=== PATIENT | female | born 1940 | race Caucasian/White ===

== ENCOUNTER 2017-04-12 12:47 | Inpatient (IN) | payer OTHER ==
[~2017-04-12] VITALS: Ht 157.5 cm; Wt 62.6 kg
--- NOTE | ~2017-04-12 | EKG ---
[address] [address] ELECTROCARDIOGRAM REPORT Name: LORENZA CRISTOBAL Room #: 354-P ADM IN M.R.#: [id number] Admission: 04/12/17 Attend Phys: Laurence Rahman Discharge: Date of : 36 Report #: [id number] THIS REPORT FOR: //name// [facility] ED Test Date: 2017-04-12 Test Time: 13:24:30 Pat Name: LORENZA CRISTOBAL Department: Room: 354 Gender: F Director Dance: TERRY : 1940 Requested By: Celeste Mckee Order Number: [id number] MD: Mahesh Morin Measurements Intervals [place] Rate: 79 P: 80 NE: 171 QRS: -33 QRSD: 106 T: 67 QT: 373 QTc: 428 Interpretive Statements Sinus rhythm Left axis deviation Anteroseptal infarct, age indeterminate Compared to ECG 06/02/2008 14:25:33 Myocardial infarct finding now present T-wave abnormality no longer present Electronically Signed On 04-12-2017 20:28:48 CDT by Mahesh Morin [email or web address] <ELECTRONICALLY SIGNED> By: Mahesh Morin MD 04/12/172027 23 23 Mahesh Morin MD /EPI
--- NOTE | ~2017-04-12 | 2DMMODE ---
[facility] [address] [place] [address] 2 D/M-MODE ECHOCARDIOGRAM Name: LEVARLORENZA Room #: 354-P ADM IN M.R.#: [id number] Admission: 04/12/17 Attend Phys: Laurence Conteh Discharge: Date of : 36 Date of Service: 04/13/17 0957 Report #: [id number] THIS REPORT FOR: //name// APPROVED REPORT Study performed: 04/13/2017 08:25:15 EXAM: Comprehensive 2D, Doppler, and color-flow Echocardiogram Patient Location: Echo lab Room #: 354 Status: routine BSA: 1.63 HR: 67 bpm BP: 114/51 mmHg Rhythm: NSR Other Information Study Quality: Adequate Indications TIA Echo Enhancing Agent Indication: Rule out Shunt Agent(s) / Amount(s) Used: Agitated Saline 6 cc 2D Dimensions RVDd: 25.93 mm LVEF(%): 69.05 (>50%) IVSd: 8.78 (7-11mm) LVOT Diam: 18.86 (18-24mm) LVDd: 40.48 mm PWd: 7.65 (7-11mm) LVDs: 24.98 (25-40mm) Aortic Root: 30.24 mm Roque's LVEF: 69.05 % Volumes Left Atrial Volume (Systole) Single Plane 4CH: 19.13 mL Single Plane 2CH: 30.55 mL LA ESV Index: 16.00 mL/m2 Aortic Valve AoV Peak Frankie.: 1.75 m/s AO Peak Gr.: 12.29 mmHg LVOT Max P.72 mmHg LVOT Max V: 1.39 m/s MACHO Vmax: 2.21 cm2 [facility] [address] [place] [address] 2 D/M-MODE ECHOCARDIOGRAM Name: HAROLDO CRISTOBALINE Room #: 354-[facility] IN [facility].#: [id number] Admission: 04/12/17 Attend Phys: Laurence Conteh Discharge: Date of : 36 Date of Service: 04/13/17 0957 Report #: [id number] Mitral Valve E/A Ratio: 0.9 MV Decel. Time: 238.87 ms MV E Max Frankie.: 0.98 m/s MV A Frankie.: 1.09 m/s MV PHT: 69.27 ms IVRT: 73.82 ms Pulmonary Valve PV Peak Frankie.: 0.90 m/s PV Peak Gr.: 3.22 mmHg Pulmonary Vein P Vein S: 0.74 m/s P Vein A: 0.34 m/s P Vein D: 0.61 m/s P Vein A Dur.: 124.6 msec P Vein S/D Ratio: 1.21 Tricuspid Valve TR Peak Frankie.: 2.27 m/s RAP Estimate: 5.00 mmHg TR Peak Gr.: 20.68 mmHg PA Pressure: 26.00 mmHg Left Ventricle The left ventricle is normal size. There is normal LV segmental wall motion. There is normal left ventricular wall thickness. Left ventricular systolic function is normal. LVEF is 60-65%. Mild diastolic dysfunction is present (impaired relaxation pattern). Right Ventricle The right ventricle is normal size. The right ventricular systolic function is normal. Atria The left atrium size is normal. Injection of bubbles documented no interatrial shunt. The right atrium size is normal. Aortic Valve Aortic valve is mildly calcified. No aortic regurgitation is present. There is no aortic valvular stenosis. Mitral Valve Mitral valveis mildly calcified. Trace mitral regurgitation. No evidence of mitral valve stenosis. Tricuspid Valve [facility] [address] [place] [address] 2 D/M-MODE ECHOCARDIOGRAM Name: LORENZA CRISTOBAL Room #: 354-P [facility] IN M.R.#: [id number] Admission: 04/12/17 Attend Phys: Laurence Conteh Discharge: Date of : 36 Date of Service: 04/13/17 0957 Report #: [id number] The tricuspid valve is normal in structure. Trace tricuspid regurgitation. Estimated PAP is 25-30mmHg. Pulmonic Valve Pulmonic valve is not well visualized. Trace pulmonic regurgitation. Great Vessels The aortic root is normal in size. Ascending aorta is not well visualized. IVC is normal in size and collapses >50% with inspiration. Pericardium There is no pericardial effusion. <Conclusion> The left ventricle is normal size. LVEF is 60-65%. Aortic valve is mildly calcified. No aortic regurgitation is present. There is no aortic valvular stenosis. Mitral valveis mildly calcified. Trace mitral regurgitation. The tricuspid valve is normal in structure. Trace tricuspid regurgitation. Estimated PAP is 25-30mmHg. Pulmonic valve is not well visualized. Trace pulmonic regurgitation. Injection of bubbles documented no interatrial shunt. <ELECTRONICALLY SIGNED> By: Charanjit Stanley MD 04/13/1757 6 6 Charanjit Stanley MD /INF
[2017-04-12 12:47] VITALS: BP 99/84
[~2017-04-12 12:47] MED LIST: AVAPRO300 MG PO; HYDROCHLOROTHIA25 M2 PO; IBUPROFEN 400400 M1 PO; JANUVIA100 MG PO; PRAVACHOL40 MG PO; SUDAFED; TESSALON PERLE100 MG PO
[2017-04-12 13:04] LABS: ABSOLUTE NEUTROPHILS 5.3 thou/uL (1.4-8.2); BASOPHILS 0.9 % (0.0-2.0); HEMATOCRIT 37.7 % (37.0-47.0); HEMOGLOBIN 12.6 gm/dL (12.0-15.0); LYMPHOCYTES 23.7 % (24.0-44.0); MCH 28.7 pg (26.0-34.0); MCHC 33.5 g/dL (28.0-37.0); MCV 85.6 fL (80.0-100.0); MONOCYTES 6.7 % (1.0-8.0); POLYS 65.7 % (36.0-66.0); RBC 4.41 mil/uL (4.20-5.00); RDW 13.3 % (10.5-14.5)
[2017-04-12 13:05] LABS: MANUAL DIFF NO
[2017-04-12 13:07] LABS: PLATELET COUNT 182 thou/uL (150-400)
[2017-04-12 13:12] LABS: POC CA IONIZED 4.9 mg/dL (4.5-5.3); POC CREATININE 1.3 mg/dL (0.6-1.3); POC HEMOGLOBIN 12.9 g/dL (12.0-15.0); POC POTASSIUM 4.3 mmol/L (3.5-5.1)
[2017-04-12 13:16] LABS: APTT 27.7 Seconds (24.5-32.8); INR 1.1
[2017-04-12 13:20] LABS: PROTIME 11.7 Seconds (9.3-11.4)
[2017-04-12 14:04] VITALS: BP 151/44
[2017-04-12 14:10] VITALS: BP 151/44
[2017-04-12 14:15] VITALS: BP 186/63
[2017-04-12 14:28] LABS: CHOLESTEROL 144 mg/dL (<200); HDL CHOLESTEROL 48 mg/dL (>40); LDL CHOLESTEROL 67 mg/dL (<100); TRIGLYCERIDE 147 mg/dL (<150); VLDL 29 mg/dL (<40)
[2017-04-12] MEDS ORDERED: GLUCOTROL5 MG PO (15:29)
[2017-04-12] MEDS ORDERED: AVAPRO300 MG PO (15:30)
[2017-04-12] MEDS ORDERED: SPIRONOLACTONE25 M1 PO (19:28)
[2017-04-12 19:55] VITALS: BP 137/56
[2017-04-13] VITALS: BP 127/53
[2017-04-13 04:10] VITALS: BP 126/67
[2017-04-13 07:40] VITALS: BP 114/51
[2017-04-13] MEDS ORDERED: ASPIRIN325 PO (10:21)
[2017-04-13 10:34] VITALS: BP 114/51
[2017-04-13 14:01] VITALS: BP 114/51
== END 2017-04-13 12:20 | disposition home or self-care (01) | DRG 69 ==
LOC: ER 12:47 → 3W 14:01 → EROBS 14:01 → 3W 14:13 → ENTRNSPT 04-13 12:19 → 3W 04-13 12:20
PROVIDERS: Emergency Medicine; Hospitalist
DX: G45.9 Transient cerebral ischemic attack, unspecified (principal); E11.9 Type 2 diabetes mellitus without complications; I10 Essential (primary) hypertension; E78.5 Hyperlipidemia, unspecified; Z98.42 Cataract extraction status, left eye; Z98.41 Cataract extraction status, right eye; Z90.711 Acquired absence of uterus with remaining cervical stump; Z90.49 Acquired absence of other specified parts of digestive tract; Z88.1 Allergy status to other antibiotic agents; Z88.0 Allergy status to penicillin; Z79.82 Long term (current) use of aspirin; Z79.899 Other long term (current) drug therapy; Z87.891 Personal history of nicotine dependence
CPT/HCPCS: 10779

== ENCOUNTER → 2017-12-22 | Outpatient (CLI) | payer OTHER ==
[~2017-12-22] VITALS: Ht 157.5 cm; Wt 63.5 kg
[~2017-12-22] MED LIST changes: +ASPIRIN325 PO; +GLUCOTROL5 MG PO; +SPIRONOLACTONE25 M1 PO; +SUDAFED 12 HR120 MG PO
--- NOTE | ~2017-12-22 | P ---
[facility] [place] [address] PROCEDURE REPORT Name: LORENZA CRISTOBAL [id number] Admission: 12/22/17 Attend Phys: Kevin Braden Discharge: Date of : 36 Report #: [id number] THIS REPORT FOR: //name// CC: Kevin Trejo MD DATE OF SERVICE: 12/22/2017 PROCEDURE PERFORMED: Colonoscopy with biopsies. HISTORY OF PRESENT ILLNESS: The patient is a 77-year-old female with a history of colon polyps, last colonoscopy in 2014. She has had a previous right hemicolectomy for polyps that could not be removed endoscopically. This was performed in 12/2012. She also has a family history of colon cancer in a brother and her father. She denies any symptoms at this time. DESCRIPTION OF PROCEDURE: The risks and benefits of the procedure were explained to the patient, those risks including but not limited to bleeding, perforation, the risk of sedation. She understood these risks and gave informed consent. Sedation was given using propofol per Anesthesia. Next, a digital rectal exam was initially performed, which was normal. Next, using a standard Olympus colonoscope, the scope was placed in the patient's anus and advanced under direct vision into the right colon in which the surgical anastomosis was noted. This was well healed and widely patent. The remaining transverse colon was normal. Multiple diverticula were noted throughout the descending and sigmoid colon. Also, in the sigmoid colon were two 3-4 mm sessile polyps, both removed with cold forceps. The rectal mucosa was normal. On retroflexion, no abnormalities were noted. The scope was then withdrawn and the procedure terminated. The patient tolerated the procedure well. IMPRESSION: 1. Left-sided diverticulosis. 2. Two small colonic polyps. 3. Surgical anastomosis noted in the right colon. 4. Otherwise, normal colonoscopy. RECOMMENDATIONS: 1. Await biopsy results. 2. Consider repeat colonoscopy in [address] [address] PROCEDURE REPORT Name: LEVARLORENZA [facility] [id number] Admission: 12/22/17 Attend Phys: Kevin Braden Discharge: Date of : 36 Report #: [id number] Thank you for allowing me to participate in her care. <ELECTRONICALLY SIGNED> By: Kevin Sarabia MD 12/29/17 1020 0852 0906 Kevin Sarabia MD /nt
--- NOTE | ~2017-12-22 | PATH ---
[facility] [address] [place] [address] PATHOLOGY RPT PROCEDURE Name: HUI CRISTOBAL Room #: REG [facility] Jey.#: [id number] Admission: 12/22/17 Date of : 36 Discharge: Report #: [id number] Path Case #: [id number] [facility] Accession Number: [id number] . 01 Material submitted: . POLYP AT SIGMOID COLON X2 . 01 Clinical history: . History polyps Colon polyps, diverticulosis . 02 Diagnosis: Polyp x 2, sigmoid colon, endoscopic biopsy: - Hyperplastic polyp x 1; negative for dysplasia. - Remainder fragments showing hyperplastic changes without dysplasia. (IUV:pit; 12/25/2017) QTP/12/25/2017 . 02 Electronically signed: . Chelle Liang MD, Pathologist NPI- [id number] . 01 Gross description: . The specimen is received in formalin, labeled "Hui Cristobal, colon polyp x2" and consists of 4 fragments of pink-salcedo soft tissue measuring between 0.3 x 0.2 x 0.1 cm and 0.5 x 0.2 x 0.1 cm. They are entirely submitted in A1. (SDY; 12/22/2017) SYU/SYU . 02 Pathologist provided ICD-10: K63.5 . 02 CPT . 207384 Performed at: [address], [place], [place] [id number] MD Eliel Navarro MD Phone: [phone] Performed at: [address] [id number] MD Chelle Liang MD Phone: [phone]
== END | disposition home or self-care (01) ==
LOC: GI 06:58
DX: Z12.11 Encounter for screening for malignant neoplasm of colon (principal); K63.5 Polyp of colon; K57.30 Diverticulosis of large intestine without perforation or abscess without bleeding; I10 Essential (primary) hypertension; E78.5 Hyperlipidemia, unspecified; E11.9 Type 2 diabetes mellitus without complications; Z79.899 Other long term (current) drug therapy; Z86.010 Personal history of colon polyps; Z87.891 Personal history of nicotine dependence; Z98.890 Other specified postprocedural states; Z80.0 Family history of malignant neoplasm of digestive organs; Z90.49 Acquired absence of other specified parts of digestive tract; Z98.0 Intestinal bypass and anastomosis status; Z90.710 Acquired absence of both cervix and uterus; Z98.41 Cataract extraction status, right eye; Z98.42 Cataract extraction status, left eye; Z86.73 Personal history of transient ischemic attack (TIA), and cerebral infarction without residual deficits
CPT/HCPCS: 62110; 62900

== ENCOUNTER 2017-12-30 15:50 | Inpatient (IN) | payer OTHER ==
[~2017-12-30] VITALS: Ht 157.5 cm; Wt 63.5 kg
--- NOTE | ~2017-12-30 | EKG ---
[place] [address] [facility] [place] [address] ELECTROCARDIOGRAM REPORT Name: LORENZA CRISTOBAL Room #: 427-P [facility] IN M.R.#: [id number] Admission: 12/30/17 Attend Phys: Bobby Mortensen MD Discharge: 12/31/17 Date of : 36 Report #: [id number] THIS REPORT FOR: //name// [facility] ED Test Date: 2017-12-30 Test Time: 15:54:48 Pat Name: LORENZA CRISTOBAL Department: Room: Gender: F Crop Supervisor: : 1940 Requested By: Celeste Mckee Order Number: [id number] MD: Sumeet Moser Measurements Intervals [place] Rate: 83 P: 78 ND: 157 QRS: -31 QRSD: 89 T: 65 QT: 355 QTc: 418 Interpretive Statements Sinus rhythm Left axis deviation Poor R wave progression Compared to ECG 04/12/2017 13:24:30 No significant change was found Electronically Signed On 01-01-2018 16:52:39 CDT by Sumeet Moser [email or web address] <ELECTRONICALLY SIGNED> By: Sumeet Moser MD, [facility] 01/01/18 [phone] Sumeet Moser MD, [facility] /EPI
[2017-12-30 16:00] VITALS: BP 136/78
[2017-12-30 16:25] LABS: ABSOLUTE NEUTROPHILS 7.2 thou/uL (1.4-8.2); BASOPHILS 0.7 % (0.0-2.0); EOSINOPHILS 2.7 % (0.0-3.0); HEMATOCRIT 36.8 % (37.0-47.0); HEMOGLOBIN 12.6 gm/dL (12.0-15.0); LYMPHOCYTES 21.8 % (24.0-44.0); MCH 28.5 pg (26.0-34.0); MCHC 34.2 g/dL (28.0-37.0); MCV 83.4 fL (80.0-100.0); MONOCYTES 7.9 % (1.0-8.0); PLATELET COUNT 197 thou/uL (150-400); POLYS 66.9 % (36.0-66.0); RBC 4.41 mil/uL (4.20-5.00); RDW 13.9 % (10.5-14.5); WBC 10.8 thou/uL (4.0-11.0)
[2017-12-30 16:34] LABS: ANION GAP 8 mmol/L (7-16); BUN 26 mg/dL (7-18); CALCIUM 9.8 mg/dL (8.5-10.1); CHLORIDE 103 mmol/L (98-107); CO2 23 mmol/L (21-32); CREATININE 1.5 mg/dL (0.6-1.0); GLUCOSE 145 mg/dL (74-106); POTASSIUM 4.9 mmol/L (3.5-5.1); SODIUM 134 mmol/L (136-145)
[2017-12-30 16:37] LABS: APTT 27.4 Seconds (24.5-32.8); INR 1.1; PROTIME 11.4 Seconds (9.3-11.4)
[2017-12-30 16:43] LABS: TROPONIN-I <0.06 ng/mL (<0.06)
[2017-12-30 17:41] VITALS: BP 136/78
[2017-12-30 18:00] VITALS: BP 165/61
[2017-12-30 18:58] VITALS: BP 165/61
[2017-12-30 19:14] VITALS: BP 139/74
[2017-12-31 00:35] VITALS: BP 112/64
[2017-12-31 05:04] VITALS: BP 103/55
[2017-12-31 09:30] VITALS: BP 102/48
[2017-12-31 12:41] VITALS: BP 102/48
== END 2017-12-31 12:53 | disposition home or self-care (01) | DRG 313 ==
LOC: ER 15:50 → EROBS 17:22 → 4E 18:30
PROVIDERS: Emergency Medicine
DX: R07.89 Other chest pain (principal); E11.9 Type 2 diabetes mellitus without complications; I10 Essential (primary) hypertension; E78.5 Hyperlipidemia, unspecified; Z90.49 Acquired absence of other specified parts of digestive tract; Z90.711 Acquired absence of uterus with remaining cervical stump; Z90.710 Acquired absence of both cervix and uterus; Z98.42 Cataract extraction status, left eye; Z98.41 Cataract extraction status, right eye; Z88.1 Allergy status to other antibiotic agents; Z88.0 Allergy status to penicillin; Z88.8 Allergy status to other drugs, medicaments and biological substances; Z87.891 Personal history of nicotine dependence; Z79.899 Other long term (current) drug therapy; Z79.82 Long term (current) use of aspirin
CPT/HCPCS: 10183

== ENCOUNTER 2020-03-04 02:40 | Emergency (ER) | payer OTHER ==
[~2020-03-04] VITALS: Ht 157.5 cm; Wt 63.5 kg
[2020-03-04 03:57] LABS: ABSOLUTE NEUTROPHILS 5.3 thou/uL (1.4-8.2); BASOPHILS 0.7 % (0.0-2.0); EOSINOPHILS 3.8 % (0.0-3.0); HEMATOCRIT 36.6 % (37.0-47.0); HEMOGLOBIN 12.2 gm/dL (12.0-15.0); LYMPHOCYTES 24.2 % (24.0-44.0); MCH 27.8 pg (26.0-34.0); MCHC 33.4 g/dL (28.0-37.0); MCV 83.2 fL (80.0-100.0); MONOCYTES 8.7 % (1.0-8.0); PLATELET COUNT 192 thou/uL (150-400); POLYS 62.6 % (36.0-66.0); RBC 4.39 mil/uL (4.20-5.00); WBC 8.5 thou/uL (4.0-11.0)
[2020-03-04 04:08] LABS: ANION GAP 9 mmol/L (7-16); BUN 20 mg/dL (7-18); CALCIUM 9.3 mg/dL (8.5-10.1); CHLORIDE 103 mmol/L (98-107); CO2 28 mmol/L (21-32); CREATININE 1.1 mg/dL (0.6-1.0); GLUCOSE 168 mg/dL (74-106); SODIUM 140 mmol/L (136-145)
[2020-03-04 04:17] LABS: TROPONIN-I <0.06 ng/mL (<0.06)
[2020-03-04 06:21] VITALS: BP 159/62
--- NOTE | 2020-03-04 07:59 | EKG ---
[facility] [place] [address] ELECTROCARDIOGRAM REPORT Name: LORENZA CRISTOBAL Room #: DEP [facility]#: [id number] Admission: 03/04/20 Attend Phys: Discharge: 03/04/20 Date of : 36 Report #: [id number] THIS REPORT FOR: cc: Nicola Trejo MD, Kirk D. MD Lundgren, Craig H. MD [facility] ~ THIS REPORT FOR: //name// [facility] ED Test Date: 2020-03-04 Test Time: 02:50:22 Pat Name: LORENZA CRISTOBAL Department: Room: Gender: F [employer]: SHEA : 1940 Requested By: Jessica Francisco Order Number: [id number] MD: Sumeet Moser Measurements Intervals [place] Rate: 63 P: 79 NE: 175 QRS: -33 QRSD: 94 T: 60 QT: 405 QTc: 415 Interpretive Statements Sinus rhythm Left axis deviation Compared to ECG 12/30/2017 15:54:48 No significant change was found Electronically Signed On 03-04-2020 7:59:24 CDT by Sumeet Moser [email or web address] <ELECTRONICALLY SIGNED> By: Sumeet Moser MD, [facility] 03/04/20 0759 0250 0250 Sumeet Moser MD, [facility] /EPI
== END 2020-03-04 06:35 | disposition home or self-care (01) ==
LOC: ER 02:40
PROVIDERS: Emergency Medicine
DX: R42 Dizziness and giddiness (principal); I10 Essential (primary) hypertension; E11.9 Type 2 diabetes mellitus without complications; E78.5 Hyperlipidemia, unspecified; Z79.899 Other long term (current) drug therapy; Z87.891 Personal history of nicotine dependence; Z88.0 Allergy status to penicillin; Z88.1 Allergy status to other antibiotic agents; Z88.8 Allergy status to other drugs, medicaments and biological substances

== ENCOUNTER → 2020-06-12 | Outpatient (CLI) | payer OTHER ==
[2020-06-12 08:58] LABS: CREATININE 1.2 mg/dL (0.6-1.0)
== END ==
LOC: LAB 07:47
PROVIDERS: ATTEND Internal Medicine
DX: Z01.818 Encounter for other preprocedural examination (principal); R42 Dizziness and giddiness; I63.9 Cerebral infarction, unspecified

== ENCOUNTER → 2021-01-13 | Outpatient (CLI) | payer OTHER ==
[~2021-01-13] VITALS: Ht 157.5 cm; Wt 63.5 kg
[~2021-01-13] MED LIST changes: +FLONASE 0.05%50 MCG NARES; +LIPITOR 40 MG T40 M1 PO; +NORVASC 2.5 MG2.5 M1 PO; +PIOGLITAZONE30 MG PO
--- NOTE | ~2021-01-13 | P ---
[facility] [place] [address] PROCEDURE REPORT Name: LORENZA CRISTOBAL Room #: REG [facility] Boo#: [id number] Admission: 01/13/21 Attend Phys: Kevin Braden Discharge: Date of : 36 Report #: [id number] THIS REPORT FOR: cc: Erwin Maldonado David J. DO Mc[place]hinney, Christian C. MD ~ cc: Erwin Maldonado DO DATE OF SERVICE: 01/13/2021 PROCEDURE PERFORMED: Colonoscopy with biopsies. HISTORY OF PRESENT ILLNESS: The patient is an 80-year-old female with a history of polyps, here for a 3-year followup. Also, a family history of colon cancer in her father and brother. She denies any symptoms. She has had a previous right hemicolectomy for a large polyp removal. DESCRIPTION OF PROCEDURE: The risks and benefits of the procedure were explained to the patient, those risks including but not limited to bleeding, perforation and the risk of sedation. She understood these risks and gave informed consent. Sedation was given using propofol per anesthesia. Next, a digital rectal exam was initially performed, which was normal. Next, using a pediatric Olympus colonoscope, the scope was placed in the patient's anus and advanced under direct vision into the right colon, at which point, the surgical anastomosis was once again noted. This was widely patent. The overall prep was good. The terminal ileum was intubated and normal in appearance. The scope was then slowly withdrawn. The remaining transverse and descending colon were normal. In the sigmoid colon, multiple diverticula were again noted. A single 3 mm sessile polyp was noted. This was removed with cold forceps. The rectal mucosa was normal. On retroflexion, no abnormalities were noted. The scope was then withdrawn and the procedure terminated. The patient tolerated the procedure well. IMPRESSION: 1. Sigmoid diverticulosis. 2. Small colon polyp. 3. Surgical anastomosis again noted. RECOMMENDATIONS: 1. Await biopsy results. 2. Observe at this point. [address] [address] PROCEDURE REPORT Name: LORENZA CRISTOBAL Room #: REG [facility] Haddad#: [id number] Admission: 01/13/21 Attend Phys: Kevin Braden Discharge: Date of : 36 Report #: [id number] Thank you for allowing me to participate in her care. By: [id number] Kevin Sarabia MD /nt
--- NOTE | 2021-01-15 17:10 | PATH ---
[facility] [address] [place] [address] PATHOLOGY RPT PROCEDURE Name: HUI CRISTOBAL Room #: REG CL Boo#: [id number] Admission: 01/13/21 Date of : 36 Discharge: Report #: [id number] Path Case #: [id number] [facility] Accession Number: [id number] . 01 Material submitted: . sigmoid colon - SIGMOID POLYP . 01 Clinical history: . HX COLON CA, HX OF POLYPS DIVERTICULOSIS COLON POLYP . 02 Diagnosis: Polyp, sigmoid polyp, endoscopic biopsy: - Tubular adenoma. - Negative for high-grade dysplasia. (IUV:kareem; 01/15/2021) QMS 01/15/2021 1230 Local . 02 Electronically signed: . Chelle Liang MD, Pathologist NPI- [id number] . 01 Gross description: . The specimen is received in formalin, labeled "Long, Hui, sigmoid polyp". Received is a single segment of pale salcedo tissue measuring 0.3 cm in maximum dimensions. The specimen is submitted entirely in cassette A1. ([facility]; 01/14/2021) NRI/NRI 01/14/2021 1859 Local . 02 Pathologist provided ICD-10: D12.5 . 02 CPT . 970988 Specimen Comment: Report sent to DR. MERA Specimen Comment: Report sent to Performed at: [address] [id number] MD Derick Howard MD Phone: [phone] Performed at: [address] [id number] MD Chelle Liang MD Phone: [phone]
== END | disposition home or self-care (01) ==
LOC: GI 07:05 → EDSTATUS 11:43 → GI 11:50
PROVIDERS: ATTEND Specialist
DX: Z12.11 Encounter for screening for malignant neoplasm of colon (principal); Z86.010 Personal history of colon polyps; Z80.0 Family history of malignant neoplasm of digestive organs; D12.5 Benign neoplasm of sigmoid colon; K57.30 Diverticulosis of large intestine without perforation or abscess without bleeding; I10 Essential (primary) hypertension; E78.00 Pure hypercholesterolemia, unspecified; E11.9 Type 2 diabetes mellitus without complications; Z98.0 Intestinal bypass and anastomosis status; Z98.890 Other specified postprocedural states; Z79.899 Other long term (current) drug therapy; Z90.49 Acquired absence of other specified parts of digestive tract; Z90.710 Acquired absence of both cervix and uterus; Z86.73 Personal history of transient ischemic attack (TIA), and cerebral infarction without residual deficits; Z88.0 Allergy status to penicillin; Z88.2 Allergy status to sulfonamides; Z88.8 Allergy status to other drugs, medicaments and biological substances
CPT/HCPCS: 62110; 62900